=== PATIENT | male | born 1940 | race Caucasian/White ===

== ENCOUNTER 2018-12-04 19:40 | Emergency (ER) | payer MEDICARE ==
--- NOTE | 2018-12-05 19:40 | UC ---
- Progress Note Progress Note: Called to parking lot by staffing clerk to see a patient who cannot get out of the car ---Patient found to be awake , alert, confused, tachycardic 110, tachypnea 48 skin warm and dry--- requested we call EMS to get him to hospital--I waited with client in parking lot until Ems arrived Course/Dx - Diagnoses Provider Diagnoses: Sepsis Discharge - Sign-Out/Discharge Documenting (check all that apply): Patient Departure All imaging exams completed and their final reports reviewed: No - Discharge Plan Condition: Guarded Disposition: TRANS HIGHER LVL OF CARE FAC Referrals: Johnny Palmer MD [Primary Care Provider] - - Billing Disposition and Condition Condition: GUARDED Disposition: Trans Higher Lvl of Care Fac - Attestation Statements Provider Attestation: I was available for consult. This patient was seen by the DEVAUGHN. The patient was not presented to , seen by or examined by mo -Jelena Hernandez MD
== END 2018-12-04 20:00 | disposition short-term general hospital (02) ==
LOC: UCEAST 19:40
DX: A41.9 Sepsis, unspecified organism (principal)
CPT/HCPCS: 99213; G0463

== ENCOUNTER 2018-12-04 20:12 | Emergency (ER) | payer MEDICARE ==
[2018-12-04] MEDS ORDERED: NS 0.9% 1000 ML** 1,000 ML IV.FLUID IV ONE (20:43)
[2018-12-04] MEDS ORDERED: Acetaminophen TAB* 325 MG PO ONE (20:44)
[2018-12-04 21:24] LABS: ABS Basophils 0.1 10^3/ul (0-0.2); ABS Lymphocytes 0.2 10^3/ul (1.0-4.8); ABS Monocytes 0.5 10^3/ul (0-0.8); ABS Neutrophils 8.3 10^3/ul (1.5-7.7); Eosinophil % 0.3 %; Hematocrit 42 % (42-52); Hemoglobin 14.3 g/dL (14.0-18.0); Lymphocyte % 2.5 %; Mean Corpuscular HGB Conc 34 g/dL (31-36); Mean Corpuscular Hemoglobin 33 pg (27-31); Mean Corpuscular Volume 96 fL (80-94); Mean Platelet Volume 8.7 fL (7.4-10.4); Platelet Count 124 10^3/uL (150-450); Red Blood Count 4.39 10^6 /uL (4.18-5.48); Red Cell Distribution Width 14 % (10-15)
[2018-12-04 21:32] LABS: Activated Partial Thrombo Time 30.9 seconds (26.0-38.0); INR 1.24 (0.82-1.09)
[2018-12-04 21:43] LABS: ALT 23 U/L (7-52); AST 26 U/L (13-39); Albumin 3.7 g/dL (3.2-5.2); Albumin/Globulin Ratio 1.5 (1-3); Alkaline Phosphatase 82 U/L (34-104); Anion Gap 9 mmol/L (2-11); Blood Urea Nitrogen 18 mg/dL (6-24); C Reactive Protein 78.93 mg/L (<8.01); CO2 Carbon Dioxide 21 mmol/L (22-32); Calcium 8.4 mg/dL (8.6-10.3); Chloride 104 mmol/L (101-111); EGFR African American 71.2 (>60); EGFR Non-African American 58.9 (>60); Globulin 2.4 g/dL (2-4); Glucose 114 mg/dL (70-100); Potassium 3.8 mmol/L (3.5-5.0); Sodium 134 mmol/L (135-145); Total Protein 6.1 g/dL (6.4-8.9)
[2018-12-04 21:47] LABS: Troponin I 0.04 ng/mL (<0.04)
[2018-12-04 22:05] LABS: Urine Appearance Clear; Urine Bacteria Absent (Absent); Urine Bilirubin Negative (Negative); Urine Blood 1+ (Negative); Urine Color Amber; Urine Glucose Negative (Negative); Urine Ketones 1+ (Negative); Urine Nitrite Negative (Negative); Urine Protein 1+(30 mg/dL) (Negative); Urine Red Blood Cell 1+(3-5/hpf) (Absent); Urine Squamous Epithelial Cell Present (Absent); Urine Urobilinogen Positive (Negative); Urine White Blood Cell Trace(0-5/hpf) (Absent)
[2018-12-04] MEDS ORDERED: cefTRIAXone(*) 1 GM in NS 0.9% 50 ML* 50 ML IVPB ONE (22:12)
--- NOTE | 2018-12-04 22:29 | ED ---
HPI Febrile Illness - HPI Summary HPI Summary: 78 year old presents with fever for the past 24 hours. He was diagnosed with the urinary tract infection last week and was placed on an antibiotic unsure which. He states he took his last dose today. Last night he developed fevers and chills. states that he became very confused and altered at an event taken to urgent care and so they called EMS. He is now back to his baseline. He denies any bowel pain. No flank pain. Has had a cough. No chest pain or shortness breath. Denies any headache. states felt weak. self catheterized due to bph. follows up with dr santamaria. - History of Current Complaint Chief Complaint: EDFever Time Seen by Provider: 12/04/18 20:36 Pain Intensity: 0 - Additional Pertinent History Primary Care Physician: THAO - Allergy/Home Medications Allergies/Adverse Reactions: Allergies Allergy/AdvReac Type Severity Reaction Status Date / Time No Known Allergies Allergy Verified 12/04/18 22:04 PMH/Surg Hx/FS Hx/Imm Hx Endocrine/Hematology History: Denies: Hx Anticoagulant Therapy Cardiovascular History: Reports: Hx Hypertension, Other Cardiovascular Problems/ Disorders - Hx of tachycardia History: Reports: Hx Benign Prostatic Hyperplasia - Cancer History Cancer Type, Location and Year: thyroid cancer, skin cancer - Surgical History Surgery Procedure, Year, and Place: cervical laminectomy, appendectomy, tonsillectomy, cholecystectomy, thyroidectomy - Immunization History Date of Tetanus Vaccine: unk Date of Influenza Vaccine: 04/11/16 Infectious Disease History: No Infectious Disease History: Denies: Traveled Outside the [place] in Last 30 Days - Family History Known Family History: Positive: Cardiac Disease, Hypertension - Social History Alcohol Use: Rare Substance Use Type: Reports: None Smoking Status (MU): Former Smoker Review of Systems Positive: Fever, Chills Negative: Chest Pain Negative: Shortness Of Breath Negative: Abdominal Pain, Vomiting, Nausea All Other Systems Reviewed And Are Negative: Yes Physical Exam Triage Information Reviewed: Yes Vital Signs On Initial Exam: Initial Vitals BP 166/82 12/04/18 20:17 Vital Signs Reviewed: Yes Appearance: Positive: Well-Appearing Skin: Positive: Warm, Dry Head/Face: Positive: Normal Head/Face Inspection Eyes: Positive: Normal, EOMI, JERED, Conjunctiva Clear ENT: Positive: Normal ENT inspection, Pharynx normal, TMs normal Respiratory/Lung Sounds: Positive: Clear to Auscultation, Breath Sounds Present Cardiovascular: Positive: Normal, RRR Abdomen Description: Positive: Nontender, Soft. Negative: CVA Tenderness (R), CVA Tenderness (L) Bowel Sounds: Positive: Present Musculoskeletal: Positive: Normal Neurological: Positive: Normal Psychiatric: Positive: Normal Diagnostics - Vital Signs Vital Signs Temp Pulse Resp BP Pulse Ox 12/04/18 21:47 85 145/66 94 12/04/18 21:17 89 160/83 94 12/04/18 21:00 89 92 12/04/18 20:47 86 170/79 94 12/04/18 20:24 101.2 F 87 18 166/82 94 12/04/18 20:18 89 92 12/04/18 20:17 166/82 - Laboratory Lab Results: Lab Results 12/04/18 12/04/18 12/04/18 Range/Units 21:13 21:13 21:13 WBC 9.0 (3.5-10.8) 10^3/uL RBC 4.39 (4.18-5.48) 10^6 /uL Hgb 14.3 (14.0-18.0) g/dL Hct 42 (42-52) % MCV 96 H (80-94) fL MCH 33 H (27-31) pg MCHC 34 (31-36) g/dL RDW 14 (10-15) % Plt Count 124 L (150-450) 10^3/uL MPV 8.7 (7.4-10.4) fL Neut % (Auto) 91.2 % Lymph % (Auto) 2.5 % [place] % (Auto) 5.2 % Eos % (Auto) 0.3 % Baso % (Auto) 0.8 % Absolute Neuts (auto) 8.3 H (1.5-7.7) 10^3/ul Absolute Lymphs (auto) 0.2 L (1.0-4.8) 10^3/ul Absolute Monos (auto) 0.5 (0-0.8) 10^3/ul Absolute Eos (auto) 0.0 (0-0.6) 10^3/ul Absolute Basos (auto) 0.1 (0-0.2) 10^3/ul Absolute Nucleated RBC 0.0 10^3/ul Nucleated RBC % 0.0 INR (Anticoag Therapy) 1.24 H (0.82-1.09) APTT 30.9 (26.0-38.0) seconds Sodium 134 L (135-145) mmol/L Potassium 3.8 (3.5-5.0) mmol/L Chloride 104 (101-111) mmol/L Carbon Dioxide 21 L (22-32) mmol/L Anion Gap 9 (2-11) mmol/L BUN 18 (6-24) mg/dL Creatinine 1.20 H (0.67-1.17) mg/dL Est GFR ( Amer) 71.2 (>60) Est GFR (Non-Af Amer) 58.9 (>60) BUN/Creatinine Ratio 15.0 (8-20) Glucose 114 H (70-100) mg/dL Lactic Acid (0.5-2.0) mmol/L Calcium 8.4 L (8.6-10.3) mg/dL Total Bilirubin 1.20 H (0.2-1.0) mg/dL AST 26 (13-39) U/L ALT 23 (7-52) U/L Alkaline Phosphatase 82 (34-104) U/L Troponin I 0.04 H* (<0.04) ng/mL C-Reactive Protein 78.93 H (<8.01) mg/L B-Natriuretic Peptide (<=100) pg/mL Total Protein 6.1 L (6.4-8.9) g/dL Albumin 3.7 (3.2-5.2) g/dL Globulin 2.4 (2-4) g/dL Albumin/Globulin Ratio 1.5 (1-3) Urine Color Urine Appearance Urine pH (5-9) Ur Specific [place] (1.010-1.030) Urine Protein (Negative) Urine Ketones (Negative) Urine Blood (Negative) Urine Nitrate (Negative) Urine Bilirubin (Negative) Urine Urobilinogen (Negative) Ur Leukocyte Esterase (Negative) Urine WBC (Auto) (Absent) Urine RBC (Auto) (Absent) Ur Squamous Epith Cells (Absent) Urine Bacteria (Absent) Urine Glucose (Negative) 12/04/18 12/04/18 12/04/18 Range/Units 21:13 21:13 21:52 WBC (3.5-10.8) 10^3/uL RBC (4.18-5.48) 10^6 /uL Hgb (14.0-18.0) g/dL Hct (42-52) % MCV (80-94) fL MCH (27-31) pg MCHC (31-36) g/dL RDW (10-15) % Plt Count (150-450) 10^3/uL MPV (7.4-10.4) fL Neut % (Auto) % Lymph % (Auto) % [place] % (Auto) % Eos % (Auto) % Baso % (Auto) % Absolute Neuts (auto) (1.5-7.7) 10^3/ul Absolute Lymphs (auto) (1.0-4.8) 10^3/ul Absolute Monos (auto) (0-0.8) 10^3/ul Absolute Eos (auto) (0-0.6) 10^3/ul Absolute Basos (auto) (0-0.2) 10^3/ul Absolute Nucleated RBC 10^3/ul Nucleated RBC % INR (Anticoag Therapy) (0.82-1.09) APTT (26.0-38.0) seconds Sodium (135-145) mmol/L Potassium (3.5-5.0) mmol/L Chloride (101-111) mmol/L Carbon Dioxide (22-32) mmol/L Anion Gap (2-11) mmol/L BUN (6-24) mg/dL Creatinine (0.67-1.17) mg/dL Est GFR ( Amer) (>60) Est GFR (Non-Af Amer) (>60) BUN/Creatinine Ratio (8-20) Glucose (70-100) mg/dL Lactic Acid 0.9 (0.5-2.0) mmol/L Calcium (8.6-10.3) mg/dL Total Bilirubin (0.2-1.0) mg/dL AST (13-39) U/L ALT (7-52) U/L Alkaline Phosphatase (34-104) U/L Troponin I (<0.04) ng/mL C-Reactive Protein (<8.01) mg/L B-Natriuretic Peptide 101 H (<=100) pg/mL Total Protein (6.4-8.9) g/dL Albumin (3.2-5.2) g/dL Globulin (2-4) g/dL Albumin/Globulin Ratio (1-3) Urine Color Sybil Urine Appearance Clear Urine pH 6.0 (5-9) Ur Specific [place] 1.020 (1.010-1.030) Urine Protein 1+(30 mg/dl) A (Negative) Urine Ketones 1+ A (Negative) Urine Blood 1+ A (Negative) Urine Nitrate Negative (Negative) Urine Bilirubin Negative (Negative) Urine Urobilinogen Positive A (Negative) Ur Leukocyte Esterase Negative (Negative) Urine WBC (Auto) Trace(0-5/hpf) (Absent) Urine RBC (Auto) 1+(3-5/hpf) A (Absent) Ur Squamous Epith Cells Present A (Absent) Urine Bacteria Absent (Absent) Urine Glucose Negative (Negative) Result Diagrams: 12/04/18 21:13 12/04/18 21:13 Lab Statement: Any lab studies that have been ordered have been reviewed, and results considered in the medical decision making process. - Radiology chest Radiology Interpretation Completed By: ED Physician Summary of Radiographic Findings: no pneumonia - CT abd CT Interpretation Completed By: Radiologist Summary of CT Findings: IMPRESSION: 1. No acute pathology in the abdomen or pelvis. 2. Caruso catheter located in the bladder. The bladder is collapsed. There is. some thickening of the bladder wall. This may be due to either chronic bladder. let obstruction and/or cystitis. This is associated with abnormal enlargement. of the prostate gland. - EKG No standard instances Cardiac Rate: NL EKG Rhythm: Sinus Rhythm EKG Comparison: No Significant Change Summary of EKG Findings: sinus rhythm Re-Evaluation - Re-Evaluation First Eval Re-Evaluation Time: 22:29 Comment: feeling better, no chest pain Second Eval Re-Evaluation Time: 00:22 Comment: still no symptoms, wants to go home Third Eval Re-Evaluation Time: 00:43 Change: Unchanged Comment: discussed admission with AMS that resolved and fever and patient again refused. wants to instead have close follow up. as wbc normal and not tachycardic will discharge. told if fever is persisting to return. Course/Dx - Course Course Of Treatment: 78 year old presents with fever for the past 24 hours. He was diagnosed with the urinary tract infection last week and was placed on an antibiotic unsure which. He states he took his last dose today. Last night he developed fevers and chills. states that he became very confused and altered at an event taken to urgent care and so they called EMS. He is now back to his baseline. He denies any bowel pain. No flank pain. Has had a cough. No chest pain or shortness breath. Denies any headache. states felt weak. self catheterized due to bph. follows up with dr santamaria. on exam lungs CTA. abd soft nontender. neg CVA tenderness. has fever here but is not tachycardic. wbc normal. crp elevated. urine shows potential uti. chest xray read by me as normal. gave dose of rocephin. troponin elevated but has no chest pain. ekg sinus rhythm. CT no acute findings. discussed admission for uti with fever and patient declined. wants to try another course of antibiotics outpatient. patient states will follow up today with dr santamaria. warned if develop worsening symptoms to return. patient understand and agrees with plan. - Febrile Illness Differential Diagnoses: Pneumonia, Pyelonephritis, Viremia - Diagnoses Provider Diagnoses: UTI (urinary tract infection), Fever Discharge - Sign-Out/Discharge Documenting (check all that apply): Patient Departure Patient Received Moderate/Deep Sedation with Procedure: No - Discharge Plan Condition: Stable Disposition: HOME Prescriptions: Amoxicillin/Clavulanate TAB* [Augmentin TAB 875*] 875 mg PO BID #14 tab Patient Education Materials: Urinary Tract Infection in Men (ED) Referrals: Johnny Palmer MD [Primary Care Provider] - Young Santamaria MD [Medical Doctor] - Additional Instructions: Take augmentin twice a day for 7days, Drink plenty of fluids take tyenlol every 6 hours as needed Follow up with urology Return to ED if develop persistent fevers or any new or worsening symptoms - Billing Disposition and Condition Condition: STABLE Disposition: Home
[2018-12-05 00:05] LABS: Troponin I 0.05 ng/mL (<0.04)
[2018-12-05] MEDS ORDERED: Acetaminophen TAB* 325 MG PO ONE (00:43)
[2018-12-05 01:15] VITALS: BP 175/71
== END 2018-12-05 01:15 | disposition home or self-care (01) ==
LOC: ED 20:12
DX: N39.0 Urinary tract infection, site not specified (principal); R50.9 Fever, unspecified; N40.1 Benign prostatic hyperplasia with lower urinary tract symptoms; Z85.850 Personal history of malignant neoplasm of thyroid; Z85.828 Personal history of other malignant neoplasm of skin; Z87.891 Personal history of nicotine dependence
CPT/HCPCS: 36415; 71045; 74176; 80053; 81003; 81015; 83605; 83880; 84484; 85025; 85610; 85730; 86140; 87040; 87086; 93005; 96361; 96365; 99284; A9270-GY; J0696

== ENCOUNTER 2018-12-10 11:43 | Emergency (ER) | payer MEDICARE ==
[2018-12-10 12:05] VITALS: BP 142/73
--- NOTE | 2018-12-10 12:20 | UC ---
General HPI - HPI Summary HPI Summary: Pleasant 78 yo gentleman presents accompainied by spouse c/o hiccups for the last apprx 4 days. Has tried several otc remedies, but hiccups might go away for an hour, but then return. Continues at night. Had episode of hiccups x several days last year, but Mr. Zaldivar reports that it felt different ( initiating in several places). No recent fever perse, but did have fever last week. Diagnosed with urine infection in ED 12/04/18. Blood work also obtained with elevated CRP. Denies recent injury, visual / auditory issues. No n/v/d. No melena / brbpr. No cough / sob / palpitations. No rash. does have chronic instability, but reports not changed recently. Hx spinal stenosis. Hx cervical surgery many years ago, no recent steroid injections. Has been taking augmentin approx 4 days. Discussed with pt and , ROS includes approx 6 days ago, they returned from drive from [facility], and upon arriving to [place], MR. Zaldivar was not able to get out of the car. Tried to move R leg, but was not able to do so. Recalls some of the event, but hard to recall specifics. Spouse doesn't recall if speech slurred or otherwise. Symptoms lasted a few minutes prior to resolving. Does not recall other issues at that time, but again, difficult to recall entirity. I reviewed Mr. Zaldivar's ancillaries as available in [id number], dating to 2016. Reviewed ED notes from 12/04/18. Note imaging including MRI brain 2015. Spoke with Dr. Palmer via telephone. Spoke with JESSICA Brennan shortly after pt's departure. Spouse will drive, he will go to the ED. But first they will go home to eat / regroup. - History of Current Complaint Chief Complaint: UCAbdominalPain Stated Complaint: HIPCUPS Time Seen by Provider: 12/10/18 12:20 Hx Obtained From: Patient Pain Intensity: 0 - Allergy/Home Medications Allergies/Adverse Reactions: Allergies Allergy/AdvReac Type Severity Reaction Status Date / Time No Known Allergies Allergy Verified 12/10/18 12:05 PMH/Surg Hx/FS Hx/Imm Hx Previously Healthy: No - see hpi Other History Of: Negative For: Anticoagulant Therapy - Surgical History Surgical History: Yes Surgery Procedure, Year, and Place: cervical laminectomy, appendectomy, tonsillectomy, cholecystectomy, thyroidectomy - Family History Known Family History: Positive: Cardiac Disease, Hypertension - Social History Alcohol Use: None Substance Use Type: None Smoking Status (MU): Former Smoker Review of Systems All Other Systems Reviewed And Are Negative: Yes Constitutional: Positive: Other - see hpi Skin: Positive: Other - see hpi Eyes: Positive: Other - see hpi ENT: Positive: Other - see hpi Respiratory: Positive: Other - see hpi Cardiovascular: Positive: Other - see hpi Gastrointestinal: Positive: Other - see hpi Genitourinary: Positive: Other - see hpi Neurovascular: Positive: Other - see hpi Musculoskeletal: Positive: Other: - see hpi Neurological: Positive: Other - see hpi Psychological: Positive: Negative Is Patient Immunocompromised?: No Physical Exam Triage Information Reviewed: Yes Appearance: Thin - nad. nontoxic general apperance. but looks tired. Vital Signs: Initial Vital Signs Temp 98.2 F 12/10/18 11:54 Pulse 62 12/10/18 11:54 Resp 18 12/10/18 11:54 BP 142/73 12/10/18 11:54 Pulse Ox 98 12/10/18 11:54 Vital Signs Reviewed: Yes Eye Exam: Other - perrla eomi, arcus scleris. Fundi nondilated grossly benign, exam limited ENT: Positive: TM dull, Other - tongue geographical Neck: Positive: Supple, Nontender Respiratory Exam: Normal Respiratory: Positive: Chest non-tender, Lungs clear, Normal breath sounds, No respiratory distress, No accessory muscle use Cardiovascular Exam: Other - HR regular with occas skip beats. Faint syst murm. Abdominal Exam: Other - + nabs, soft, nd, not Abdomen Description: Positive: Nontender Musculoskeletal Exam: Other - arthritic. Moves x 4 ext's gait slow, but steady Neurological Exam: Other - see hpi does have chronic instability, but reports not changed recently Psychological Exam: Normal - conversing easily and appropriately. Skin Exam: Normal - nondiaphoretic. A little pale. No visible or reported rash. Course/Dx - Course Course Of Treatment: Pleasant 78 yo gentleman presents accompainied by spouse c/o hiccups for the last apprx 4 days. Has tried several otc remedies, but hiccups might go away for an hour, but then return. Continues at night. Had episode of hiccups x several days last year, but Mr. Zaldivar reports that it felt different ( initiating in several places). No recent fever perse, but did have fever last week. Diagnosed with urine infection in ED 12/04/18. Blood work also obtained with elevated CRP. Denies recent injury, visual / auditory issues. No n/v/d. No melena / brbpr. No cough / sob / palpitations. No rash. Has been taking augmentin approx 4 days. Discussed with pt and , ROS includes approx 6 days ago, they returned from drive from [facility], and upon arriving to [place], MR. Zaldivar was not able to get out of the car. Tried to move R leg, but was not able to do so. Recalls some of the event, but hard to recall specifics. Spouse doesn't recall if speech slurred or otherwise. Symptoms lasted a few minutes prior to resolving. Does not recall other issues at that time, but again, difficult to recall entirity. I reviewed Mr. Zaldivar's ancillaries as available in [email or web address], dating to 2015. Reviewed ED notes from 12/04/18. Note imaging including MRI brain 2015. Spoke with Dr. Palemr via telephone. Spoke with JESSICA Brennan shortly after pt's departure. Spouse will drive, he will go to the ED. But first they will go home to eat / regroup. - Diagnoses Provider Diagnosis: Intractable hiccups Discharge - Sign-Out/Discharge Documenting (check all that apply): Patient Departure All imaging exams completed and their final reports reviewed: No Studies - Discharge Plan Condition: Stable Disposition: HOME-RECOMMEND TO ED Patient Education Materials: Hiccups (ED) Referrals: Johnny Palmer MD [Primary Care Provider] - Additional Instructions: I recommend that you go to the Emerg Department for further evaluation and treatment. If you do not go to the Emergency Department, then follow up with Dr. Palmer as soon as possible (call Wednesday for appointment). Please call 911 to take you to the Emerg Department if any worse or new problems. - Billing Disposition and Condition Condition: STABLE Disposition: Home-Recommend to ED
== END 2018-12-10 13:17 | disposition home health service (06) ==
LOC: UCEAST 11:43
DX: R06.6 Hiccough (principal)
CPT/HCPCS: 99212; G0463

== ENCOUNTER 2018-12-10 14:18 | Emergency (ER) | payer MEDICARE ==
--- NOTE | 2018-12-10 15:31 | ED ---
Complex/Multi-Sys Presentation - HPI Summary HPI Summary: 78 year old M presenting to [facility] from [facility] accompanied by with a chief complaint of intermittent episodes of hiccups lasting about an hour since 12/07/18. The patient rates the pain 5/10 in severity. Symptoms aggravated by nothing. Symptoms alleviated by nothing. Patient denies chest pain , difficulty swallowing, abdominal pain, fever, and rash. states that patient has had hiccups once in the past. Patient states chlorpromazine helped. states that patient was in the hospital on 12/04/18 with dx UTI. He was discharged home with prescription for amoxicillin and Augmentin which he has been taking since 12/05/18. states that upon arrival to [facility], patient wasn't able to get out of the car and had to be brought to ED by ambulance. - History Of Current Complaint Chief Complaint: EDGeneral Time Seen by Provider: 12/10/18 15:25 Hx Obtained From: Patient, Family/Hospitality Coordinator - Onset/Duration: Sudden Onset, Lasting Days - 4, Still Present Timing: Intermittent, Lasting: - 1 hour Severity Currently: Moderate Aggravating Factor(s): Nothing Alleviating Factor(s): Nothing Associated Signs And Symptoms: Positive: Other - NEG: chest pain, difficulty swallowing, abdominal pain, fever, rash - Allergies/Home Medications Allergies/Adverse Reactions: Allergies Allergy/AdvReac Type Severity Reaction Status Date / Time No Known Allergies Allergy Verified 12/10/18 14:35 PMH/Surg Hx/FS Hx/Imm Hx Previously Healthy: No Endocrine/Hematology History: Denies: Hx Anticoagulant Therapy Cardiovascular History: Reports: Hx Hypertension, Other Cardiovascular Problems/ Disorders - Hx of tachycardia History: Reports: Hx Benign Prostatic Hyperplasia Neurological History: Reports: Hx Transient Ischemic Attacks (TIA) - Cancer History Cancer Type, Location and Year: thyroid cancer, skin cancer - Surgical History Surgery Procedure, Year, and Place: cervical laminectomy, appendectomy, tonsillectomy, cholecystectomy, thyroidectomy - Immunization History Date of Tetanus Vaccine: unk Date of Influenza Vaccine: 04/11/16 Infectious Disease History: No Infectious Disease History: Reports: Hx Shingles Denies: Traveled Outside the [place] in Last 30 Days - Family History Known Family History: Positive: Cardiac Disease, Hypertension - Social History Alcohol Use: None Hx Substance Use: No Substance Use Type: Reports: None Hx Tobacco Use: Yes Smoking Status (MU): Former Smoker Review of Systems Negative: Fever ENT: Negative - difficulty swallowing Positive: Other - hiccups Negative: Chest Pain Negative: Shortness Of Breath Negative: Abdominal Pain Negative: Rash All Other Systems Reviewed And Are Negative: Yes Physical Exam - Summary Physical Exam Summary: Appearance: Well-appearing, Well-nourished, lying in bed comfortably Skin: Warm, dry, no obvious rash Eyes: sclera anicteric, no conjunctival pallor ENT: mucous membranes moist, pharynx appears normal Neck: Supple, nontender Respiratory: Clear to auscultation, no signs of respiratory distress Cardiovascular: Normal S1, S2. No murmurs. Normal distal pulses in tibial and radial bilaterally. Abdomen: Soft, nontender, normal active bowel sounds present Musculoskeletal: Normal, Strength/ROM Intact Neurological: A&Ox3, awake and alert, mentation is normal, speech is fluent and appropriate Psychiatric: affect is normal, does not appear anxious or depressed Triage Information Reviewed: Yes Vital Signs On Initial Exam: Initial Vitals Temp Pulse Resp BP Pulse Ox 97.1 F 85 18 165/91 95 12/10/18 14:32 12/10/18 14:32 12/10/18 14:32 12/10/18 14:32 12/10/18 14:32 Vital Signs Reviewed: Yes Diagnostics - Vital Signs Vital Signs Temp Pulse Resp BP Pulse Ox 12/10/18 14:32 97.1 F 85 18 165/91 95 - Laboratory Lab Statement: Any lab studies that have been ordered have been reviewed, and results considered in the medical decision making process. Complex Multi-Symp Course/Dx Course Of Treatment: 78 year old M presenting to [facility] from [facility] accompanied by with a chief complaint of intermittent episodes of hiccups lasting about an hour since 12/07/18. states that patient has had hiccups once in the past. Patient states chlorpromazine helped. states that patient was in the hospital on 12/04/18 with dx UTI. He was discharged home with prescription for amoxicillin and Augmentin which he has been taking since 12/05/18. Physical exam findings: unremarkable. In the ED course, the patient was given chlorpromazine. Patient will be discharged with prescription for chlorpromazine and follow up from primary care provider, Dr. Palmer. The patient is agreeable with this plan. - Diagnoses Provider Diagnoses: Hiccups Discharge - Sign-Out/Discharge Documenting (check all that apply): Patient Departure - Discharge Patient Received Moderate/Deep Sedation with Procedure: No - Discharge Plan Condition: Good Disposition: HOME Prescriptions: chlorproMAZINE TAB* [Thorazine TAB*] 25 mg PO TID PRN #30 tab PRN Reason: Hiccups Patient Education Materials: Hiccups (ED) Referrals: Johnny Palmer MD [Primary Care Provider] - 3 Days (if not improved) - Billing Disposition and Condition Condition: GOOD Disposition: Home - Attestation Statements Document Initiated by Scribe: Yes Documenting Scribe: Judith Crespo Provider For Whom Huma is Documenting (Include Credential): Agus Ackerman MD Scribe Attestation: Judtih Melgoza scribed for Agus Ackerman MD on 12/10/18 at 2200. Scribe Documentation Reviewed: Yes Provider Attestation: The documentation as recorded by the Judith kaur accurately reflects the service I personally performed and the decisions made by Agus le MD Status of Scribe Document: Viewed
[2018-12-10] MEDS ORDERED: chlorproMAZINE TAB* 25 MG PO ONE (15:34)
[2018-12-10 16:04] VITALS: BP 103/74
== END 2018-12-10 16:04 | disposition home or self-care (01) ==
LOC: ED 14:18
DX: R06.6 Hiccough (principal); Z85.850 Personal history of malignant neoplasm of thyroid; Z85.828 Personal history of other malignant neoplasm of skin; Z87.891 Personal history of nicotine dependence
CPT/HCPCS: 99282; A9270-GY